=== PATIENT | male | born 1945 | race Caucasian/White ===

== ENCOUNTER 2023-08-07 10:07 | Emergency (ER) | payer MEDICARE ==
[~2023-08-07] VITALS: Ht 167.6 cm; Wt 51.0 kg
[2023-08-07 10:12] VITALS: O2SAT 100
[2023-08-07 11:13] LABS: DIFFERENTIAL COMMENT 1; HEMATOCRIT. 47.8 % (42.0-52.0); HEMOGLOBIN. 16.5 g/dL (14.0-18.0); MEAN CORPUSCULAR HEMOGLOBIN 31.4 pg (28.0-32.0); MEAN CORPUSCULAR HGB CONC 34.4 g/dL (31.0-37.0); MEAN CORPUSCULAR VOLUME 91.2 fL (80.0-94.0); PLATELET 285 x1000/uL (130-400); RED BLOOD CELL COUNT 5.24 mill/uL (4.7-6.1); RED CELL DISTRIBUTION WIDTH 13.4 % (11.6-14.6); WHITE BLOOD COUNT 11.5 x1000/uL (4.5-11.0)
[2023-08-07] MEDS: ONDANSETRON HCL 4MG/2ML INJ IV ONE (11:24)
[2023-08-07] MEDS: MORPHINE SULFATE 2 MG/ML CPJ (NOT FOR IM USE) IV ONE (11:27)
[2023-08-07 11:36] LABS: CARBON DIOXIDE 24 mEq/L (21-32); CHLORIDE 100 mEq/L (98-107); POTASSIUM 4.3 mEq/L (3.5-5.1); SODIUM 138 mEq/L (136-145)
[2023-08-07 11:37] LABS: CALCIUM 10.9 mg/dL (8.7-10.4)
[2023-08-07 11:41] LABS: CREATININE 1.7 mg/dL (0.6-1.3); GLUCOSE 150 mg/dL (70-105)
[2023-08-07 11:42] LABS: UREA NITROGEN BLOOD 34 mg/dL (9-23)
[2023-08-07 11:46] LABS: TROPONIN I HIGH SENSITIVITY 580 ng/L (3.0-53)
[2023-08-07 13:09] LABS: PLATELET ESTIMATE NORMAL
[2023-08-07] MEDS: SODIUM CHLORIDE 0.9% 1,000 ML IV ONE (14:44)
[2023-08-07] MEDS: HYDROMORPHONE HCL/PF 2MG/ML CPJ IV ONE (14:44)
[2023-08-07 15:50] VITALS: BP 96/48; PULSE 117; RESP 22; TEMP 98.1
[2023-08-07 16:27] LABS: TROPONIN I HIGH SENSITIVITY 869 ng/L (3.0-53)
[2023-08-07] MEDS ORDERED: IPRATROPIUM/ALBUTEROL 0.5-3(2.5)MG/3ML NEB HHN PRN (16:45)
[2023-08-07] MEDS ORDERED: PIPERACILLIN/TAZOBACTAM 3.375 G in DEXTROSE 5% WATER 50 ML IV SCH (16:45)
[2023-08-07] MEDS ORDERED: HYDROMORPHONE HCL/PF 2MG/ML CPJ IV PRN (16:45)
[2023-08-07] MEDS ORDERED: DIPHENHYDRAMINE 50MG/ML VIAL IV PRN (16:45)
[2023-08-07] MEDS ORDERED: ONDANSETRON HCL 4MG/2ML INJ IV PRN (16:45)
[2023-08-07] MEDS ORDERED: ACETAMINOPHEN 325MG TABLET PO PRN (16:45)
[2023-08-07] MEDS ORDERED: SODIUM CHLORIDE 0.9% 1,000 ML IV SCH (16:45)
[2023-08-07] MEDS ORDERED: VANCOMYCIN 1G PREMIX 200 ML IV NR (17:00)
[2023-08-07] MEDS ORDERED: NALOXONE HCL 0.4MG/ML VIAL IV PRN (17:00)
[2023-08-07] MEDS ORDERED: PIPERACILLIN/TAZO 3.375G/50ML IV SCH (17:00)
[2023-08-08] MEDS ORDERED: VANCOMYCIN 750MG/150ML IV SCH (18:00)
== END 2023-08-07 16:31 ==
LOC: ER 12:28 → EDBEDREQ 14:49 → EDBEDREQTM 14:49 → ER 16:31 → EDBEDREQSVC 16:33 → CANBEDREQ 16:37
DX: K56.609 Unspecified intestinal obstruction, unspecified as to partial versus complete obstruction (principal); Z90.49 Acquired absence of other specified parts of digestive tract
CPT/HCPCS: 99291; 31500; 71250; 96374; 96375; 71045; 96361; 80048; 83880; 85025; 84484; 36415; 74176; 93005; J2405; J1170; J2270; J7030